=== PATIENT | male | born 2005 | race Two or more races ===

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

== ENCOUNTER → 2024-09-01 | Outpatient (CLI) | payer BC, OTHER ==
--- NOTE | 2024-09-02 12:10 | MR ---
EXAMINATION TYPE: MR pelvis wo con DATE OF EXAM: 09/01/2024 3:16 PM COMPARISON: None. 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 TECHNIQUE: Triplane multisequence imaging was performed of the pelvis. IV Contrast: mL FINDINGS: Reproductive: Prostate: Unremarkable. Seminal vesicle's: Unremarkable. Testes: Unremarkable. Bladder: Unremarkable. Bowel: Unremarkable as visualized. Peritoneum: No free fluid or adenopathy. Lymph nodes: No evidence of adenopathy. Vasculature: Unremarkable. Musculoskeletal: Bone marrow signal is within normal signal intensity. There is a small left hip effu matthew and trace right hip are effusion. Increased T2 and STIR signal around the left sacroiliac joint. Abdominal wall/soft tissues: Unremarkable. IMPRESSION: 1. Inflation and degeneration around the left sacroiliac joint with edema around the left sacroiliac joint findings compatible with sacroiliitis. 2. Small left hip effusion. Consider further evaluation with MRI. [facility], , 09/02/2024 12:08 PM
== END | disposition home or self-care (01) ==
LOC: RADMRIMAIN 13:46
PROVIDERS: ATTEND Student in an Organized Health Care Education/Training Program
DX: M08.1 Juvenile ankylosing spondylitis (principal); M46.1 Sacroiliitis, not elsewhere classified; M25.452 Effusion, left hip
CPT/HCPCS: 72195